=== PATIENT | female | born 1990 ===

== ENCOUNTER 2018-04-23 10:29 | Emergency (ER) | payer OTHER ==
[2018-04-23] MEDS ORDERED: Lorazepam 2 MG/ML VIAL ONE (11:07)
[2018-04-23 11:30] LABS: Pregnancy Test - Urine (BHCG) Negative (Negative); Pregu Control Background? CLEAR/WHITE (CLR/WHITE); Pregu Control Bar Appear? YES (CONTROL BAR)
[2018-04-23 11:38] LABS: Amphetamine Not Detected (NotDetected); Benzodiazepine Screen Not Detected (NotDetected); Bilirubin Negative (Negative); Blood, Urine Large (Negative); Clarity Slightly Cloudy (Clear); Cocaine Metabolite Screen Not Detected (NotDetected); Glucose, Urine (Dipstick) Negative (Negative); Leukocyte Negative (Negative); Methamphetamine Not Detected (NotDetected); Nitrite Negative (Negative); Opiate Screen Not Detected (NotDetected); Phencyclidine (PCP) Not Detected (NotDetected); Protein, Urine (Dipstick) 30 mg/dL (Neg-Trace); THC/Cannabinoid Screen Not Detected (NotDetected); Urobilinogen 0.2 mg/dL (0.2-1.0)
[2018-04-23 11:39] LABS: ALT (SGPT) 27 U/L (8-55); AST (SGOT) 21 U/L (5-34); Albumin 4.9 g/dL (3.5-5.0); Alkaline Phosphatase 63 U/L (40-150); Anion Gap 17 mmol/L (10-20); BUN (Urea Nitrogen) 10 mg/dL (7.0-18.7); Bilirubin, Total 0.6 mg/dL (0.2-1.2); CK (CPK) 50 U/L (29-168); Calc. Creatinine Clearance 0 mL/min (70-130); Calcium 9.9 mg/dL (7.8-10.44); Carbon Dioxide 22 mmol/L (22-29); Chloride 105 mmol/L (98-107); Estimated GFR-MDRD Greater than 90; Globulin 3.2 g/dL (2.4-3.5); Glucose 106 mg/dL (70-105); Potassium 4.2 mmol/L (3.5-5.1); Protein, Total 8.1 g/dL (6.0-8.3); Sodium 140 mmol/L (136-145)
[2018-04-23 11:39] LABS: Barbiturates Screen Not Detected (NotDetected); Medtox Control Line Valid? VALID (VALID); Methadone Not Detected (NotDetected); Oxycodone Screen Not Detected (NotDetected); Tricyclic Screen Not Detected (NotDetected)
[2018-04-23 11:40] LABS: CKMB 0.3 ng/mL (0-6.6); Troponin I Less than 0.010 ng/mL (< 0.028)
[2018-04-23 11:47] LABS: Hemoglobin 16.2 g/dL (12.0-16.0); Mean Corpuscular HGB CONC 35.9 g/dL (32.0-36.0); Mean Corpuscular Hemoglobin 31.7 pg (27.0-31.0); Mean Corpuscular Volume 88.4 fL (78.0-98.0); Mean Platelet Volume 13.5 fL (7.4-10.4); Platelet Count 232 thou/uL (130-400); RBC Distribution Width 10.6 % (11.5-14.5); Red Blood Cell (RBC) Count 5.12 mill/uL (4.20-5.40); White Blood Cell (WBC) Count 7.4 thou/uL (4.8-10.8)
[2018-04-23 11:50] LABS: Bacteria/HPF None Seen HPF (None Seen); RBC/HPF 21-50 HPF (0-3); Squamous Epithelial 0-3 HPF (0-3); WBC/HPF 0-3 HPF (0-3)
[2018-04-23 11:58] LABS: #Basophils 0.1 thou/uL (0.0-0.2); #Lymphocytes 1.1 thou/uL (1.20-3.40); #Monocytes 0.3 thou/uL (0.11-0.59); %Basophils 0.8 % (0.0-1.0); %Eosinophils 0.1 % (0.0-10.0); %Lymphocytes 14.5 % (21.0-51.0); %Monocytes 3.5 % (0.0-10.0); %Neutrophils 81.2 % (42.0-75.0); PLT Morphology Comment Appears Adequate; RBC Morphology Normal
[2018-04-23 12:00] LABS: MDiff Complete? YES
--- NOTE | 2018-04-23 12:31 | RAD ---
PA AND LATERAL CHEST XRAY: DATE: 04/23/18. HISTORY: Dyspnea. Multiple episodes of diarrhea and bloating. Anxiety attack with shortness of breath. COMPARISON: None available. FINDINGS: Cardiac silhouette and pulmonary vasculature are within normal limits. The lungs are clear. Osseous structures are intact. IMPRESSION: No acute cardiopulmonary process. POS: [facility]
== END 2018-04-23 12:15 | disposition home or self-care (01) ==
LOC: SCSER 10:29
DX: F41.9 Anxiety disorder, unspecified (principal)
CPT/HCPCS: 71046; 80053; 80306; 81003; 81015; 81025; 82550; 82553; 84484; 85025; 85379; 93005; 96361; 96374; J2060